=== PATIENT | female | born 1955 | race Caucasian/White ===

== ENCOUNTER 2022-10-19 14:34 | Outpatient (CLI) | payer MEDICARE, BC | END 2022-10-19 14:35 | disposition home or self-care (01) | LOC: CSHMAMMO 14:34 | PROVIDERS: ATTEND Physician Assistant | DX: Z12.31 Encounter for screening mammogram for malignant neoplasm of breast (principal); Z91.89 Other specified personal risk factors, not elsewhere classified | CPT/HCPCS: 77063; 77067 ==

== ENCOUNTER 2023-09-01 15:01 | Outpatient (CLI) | payer MEDICARE | END 2023-09-01 15:02 | disposition home or self-care (01) | LOC: CSHRAD 15:01 | PROVIDERS: ATTEND Physician Assistant | DX: M54.32 Sciatica, left side (principal); M25.552 Pain in left hip; M47.816 Spondylosis without myelopathy or radiculopathy, lumbar region | CPT/HCPCS: 72100 ==

== ENCOUNTER 2023-11-06 13:02 | Outpatient (CLI) | payer MEDICARE | END 2023-11-06 13:03 | disposition home or self-care (01) | LOC: CSHCT 13:02 | PROVIDERS: ATTEND Physician Assistant | DX: Z12.2 Encounter for screening for malignant neoplasm of respiratory organs (principal); F17.210 Nicotine dependence, cigarettes, uncomplicated; R91.1 Solitary pulmonary nodule | CPT/HCPCS: 71271 ==

== ENCOUNTER 2023-11-28 12:26 | Outpatient (CLI) | payer MEDICARE ==
[~2023-11-28 12:26] MED LIST: Magnevist 469MG/ML 20 ML VIAL ONE
== END 2023-11-28 12:27 | disposition home or self-care (01) ==
LOC: CSHMRI 12:26
PROVIDERS: ATTEND Physician Assistant
DX: C14.0 Malignant neoplasm of pharynx, unspecified (principal); E04.2 Nontoxic multinodular goiter; K11.8 Other diseases of salivary glands
CPT/HCPCS: 70543; 82565; A9579

== ENCOUNTER 2024-12-20 08:18 | Outpatient (CLI) | payer MEDICARE ==
[2024-12-20] MEDS ORDERED: Iopamidol 300 61% 100 ML VIAL FS ONE (09:36)
== END 2024-12-20 08:19 | disposition home or self-care (01) ==
LOC: CSHCT 08:18
PROVIDERS: ATTEND Internal Medicine Hematology & Oncology
DX: C7A.090 Malignant carcinoid tumor of the bronchus and lung (principal); C78.7 Secondary malignant neoplasm of liver and intrahepatic bile duct; J18.9 Pneumonia, unspecified organism; J98.4 Other disorders of lung
CPT/HCPCS: 71260; 74183; Q9967